=== PATIENT | male | born 1935 | race Caucasian/White ===

== ENCOUNTER → 2017-08-29 09:00 | Outpatient (CLI) | payer MEDICARE, OTHER, SELFPAY | PROVIDERS: Family Provider Family Medicine Geriatric Medicine; PCP Family Medicine Geriatric Medicine; Visit Provider Family Medicine Geriatric Medicine | DX: I25.10 Atherosclerotic heart disease of native coronary artery without angina pectoris (principal) | CPT/HCPCS: 93016; 93017; 93018 ==

== ENCOUNTER → 2017-09-12 11:15 | Outpatient (CLI) | payer MEDICARE, OTHER, SELFPAY ==
[2017-09-12 12:04] LABS: Blood Urea Nitrogen 12 mg/dL (9-20); Estimated Glomerular Filt Rate > 60.0 mL/min (>60)
--- NOTE | 2017-09-12 12:19 | DI.CT.S_ITS ---
PROCEDURE: CT ABDOMEN WO/W CON INDICATIONS: Vomiting. Prostate and bladder cancer, pancreatic mass TECHNIQUE: Noncontrast 3 mm thick sections acquired through the pancreas. After the administration of intravenous contrast, 3 mm thick pancreatic-phase images acquired from the diaphragm to the iliac crests. 3 mm thick coronal and sagittal reformats were performed. For radiation dose reduction, the following was used: automated exposure control, adjustment of mA and/or kV according to patient size. COMPARISON: [facility], CT, CT ABD PELVIS W&WO CON IVP, 10/29/2016, 16:58. FINDINGS: Image quality: Excellent. Lung bases: Lung bases show peripherally accentuated groundglass opacities, likely atelectasis or chronic interstitial lung disease. Heart size is normal. Pancreas: The lobulated cystic mass in the head of pancreas appears unchanged, measuring 1.8 cm AP by 3.9 cm in length on exam of 10/29/2016 and 1.9 cm AP by 3.6 cm in length on current study, with attenuation of 5 postcontrast. No dilatation of the pancreatic duct distal to the mass. Slight dilatation of the intrahepatic bile ducts is unchanged. Other solid organs: Liver is normal in size and enhancement. Gallbladder shows no calcified stones. Spleen is normal in size and enhancement. No adrenal nodules. Kidneys are normal in size and enhancement, without hydronephrosis. Peritoneum and bowel: Unenhanced bowel loops demonstrate normal wall thickness and caliber. No free fluid or air. Nodes and vessels: No retroperitoneal or mesenteric adenopathy by size criteria. Aorta and inferior vena cava are normal in size. Bones: No suspicious bony lesions. No vertebral body compression fractures. Miscellaneous: No ventral hernias. IMPRESSION: 1. Cystic mass in the head of pancreas is unchanged in size or appearance, likely benign but continued surveillance is recommended. 2. No evidence of soft tissue or yonny metastases. Dictated by: Go Reed M.D. on 09/12/2017 at 15:42 Approved by: Go Reed M.D. on 09/12/2017 at 16:03
== END ==
PROVIDERS: Family Provider Family Medicine Geriatric Medicine; PCP Family Medicine Geriatric Medicine; Visit Provider Surgery
DX: C67.9 Malignant neoplasm of bladder, unspecified (principal); C61 Malignant neoplasm of prostate; K86.9 Disease of pancreas, unspecified; R11.10 Vomiting, unspecified
CPT/HCPCS: 36415; 74170; 82565; 84520; Q9967

== ENCOUNTER 2017-09-26 13:29 | Day surgery (SDC) | payer MEDICARE, OTHER, SELFPAY ==
--- NOTE | 2017-09-26 | PATH_ITS ---
[facility] Accession Number: [id number] . 01 Material submitted: . PART A: ANTRAL BIOPSY PART B: GI JUNCTION BIOPSY PART C: RANDOM COLON BIOPSY . 02 Diagnosis: A. Stomach, Antrum, Biopsy: Antral mucosa with no diagnostic abnormality. No evidence of Helicobacter on H/E stain. Negative for intestinal metaplasia. Negative for dysplasia and malignancy. . B. Gastroesophageal Junction, Biopsy: Squamocolumnar junctional mucosa with no diagnostic abnormality. Negative for intestinal metaplasia. Negative for dysplasia and malignancy. . C. Random Colon, Biopsies: Colonic mucosa with no diagnostic abnormality. Negative for active, chronic and microscopic colitis. Negative for dysplasia and malignancy. [facility]/09/30/2017 . 02 Electronically signed: . Karina Mcfarland MD, Pathologist NPI- [id number] . 01 Gross description: . Part A: ANTRAL BIOPSY: Received in formalin are 3 fragment(s) of juarez, soft tissue measuring 0.4 x 0.4 x 0.2 cm to 0.3 x 0.2 x 0.2 cm submitted entirely in 1 cassette(s) Part B: GI JUNCTION BIOPSY: Received in formalin are multiple fragment(s) of juarez, soft tissue measuring 1.0 x 0.5 x 0.2 cm in aggregate submitted entirely in 1 cassette(s) Part C: RANDOM COLON BIOPSY: Received in formalin are multiple fragment(s) of juarez, soft tissue measuring 0.8 x 0.5 x 0.1 cm in aggregate submitted entirely in 1 cassette(s) /CKI /CKI . 02 Pathologist provided ICD-10: R10.9 . 02 CPT . 666078, 120019, 954594 Performed at: [address], [place], [place] [id number] MD Jeremy Mckinley MD Phone: [phone] Performed at: 02 [facility] [place] [address] [place] [id number] MD Tk Lott MD Phone: [phone]
[2017-09-26] MEDS: SODIUM CHLORIDE 0.9% 1,000 ML 200 ML IV (14:00)
[2017-09-26 14:01] VITALS: BP 120/73; PULSE 77; RESP 18; TEMP 37; O2SAT 99; BMI 24.7
--- NOTE | 2017-09-26 14:14 | PM.PREOP ---
Pre-operative Note Interval Note Pre-op Check: Yes History & Physical Reviewed by Physician and Yes Exam Performed Changes: No H&P completed within 30 days and has changed as indicated here:: Patient seen and examined today. History physical examination from August 29, 2017 has not changed. That documented on the chart. Proceed with EGD and colonoscopy today as planned. Recent treadmill study was unremarkable. CT scan demonstrates stable pancreatic lesion but referral has been initiated for potential endoscopic ultrasound. Patient aware. ASA Class (for procedural sedation): II
[2017-09-26] MEDS: TETRACAINE/BENZOCAINE/BUTAMBEN (CETACAINE) BOTTLE 1 SPRAY TOP (14:53)
[2017-09-26] MEDS: LIDOCAINE 4% SOLN 50 ML 20 ML TOP (14:58)
[2017-09-26] MEDS: MIDAZOLAM 5 MG/5 ML VIAL IV (15:05)
[2017-09-26] MEDS: fentaNYL 250 MCG/5 ML INJ IV (15:06)
--- NOTE | 2017-09-26 15:11 | PM.OP.ENDO ---
Operative Date/Time/Diagnoses Date of procedure: 09/26/17 Time of procedure: 15:11 Pre-op diagnosis: Nausea, vomiting, abdominal pain Post-op diagnosis: other (1. Duodenitis 2. Peptic ulcer disease 3. Gastritis 4. Erosive esophagitis at GE junction 5. Pandiverticulosis) Procedure & Clinicians Study performed: 1. Sedation per surgeon 2. Esophagogastroduodenoscopy with cold forceps biopsies 3. Colonoscopy with cold forceps biopsies Same procedure as scheduled: Yes Indications: 82-year-old male who recently presented with intractable nausea, vomiting, and abdominal pain. He had also experienced some mild change in the caliber and character of his stool. He was recommended to undergo EGD and colonoscopy. Surgeon: Francois Womack Procedure Notes SCOAP/Timeout: Yes Procedure in detail: After obtaining informed consent the patient was brought to the endoscopy suite and attached all appropriate cardiopulmonary monitors. Nasal cannula oxygen was applied. Topical anesthetic was applied to the oropharynx. Patient was placed in left lateral decubitus position. A bite block was inserted. SCOAP time out was performed per standard protocol. Intravenous sedation was achieved per the surgeon using fentanyl and Versed. Gastroscope was placed over the tongue to the oropharynx where the upper esophageal sphincter was identified. Esophagus was easily intubated and the scope was advanced under direct visualization of the esophageal lumen into the stomach. Stomach insufflated easily with air. Pylorus was mildly inflamed but otherwise grossly normal and widely patent. The pylorus was intubated and the scope was advanced to the distal 2nd portion of the duodenum. Scope was slowly withdrawn and the bowel was meticulously and circumferentially examined. Findings are as above. Scope was withdrawn into the stomach where antral biopsies were performed. Hemostasis was verified. Retroflexed view demonstrated mildly inflamed incisura but no evidence of gastric ulcers or neoplasms. No significant hiatal hernia. Diffuse mild gastritis but otherwise normal stomach. Stomach was suctioned of as much fluid and air as possible and the scope was withdrawn to the gastroesophageal junction which was located 38 cm from the incisors. There was significant erosive gastritis circumferentially. Multiple biopsies were taken. Hemostasis was again verified. Esophagus was meticulously and circumferentially examined as the scope was slowly withdrawn. No other abnormalities, strictures, or neoplasms were identified in the esophagus. Scope was withdrawn through the mouth and this portion of the procedure was terminated. Bite block was removed. Table was turned 180? for colonoscopy. Digital rectal examination revealed no masses. Prostate was without obvious nodules. Colonoscope was inserted into the rectum and the bowel was insufflated with carbon dioxide. Under direct visualization of the colonic lumen the scope was advanced to the cecum where the appendiceal orifice and ileocecal valve were identified. Terminal ileum was intubated and noted to be grossly normal. Scope was slowly withdrawn and the bowel was meticulously and circumferentially examined. Bowel preparation was adequate. He had significant pandiverticulosis but without evidence of inflammation, hemorrhage, or stricture. No polyps or other neoplasms were identified. No gross colitis. However, random biopsies were taken for the possibility of microscopic colitis. Retroflex view of the distal rectum and anus revealed no abnormalities. Hemorrhoids were normal. Scope was withdrawn and the procedure was terminated. Patient taken recovery in stable condition. Scope withdrawal time: 9:10 min Sedation minutes: 38 Findings: Mccall's esophagus (Pending biopsy results), diverticulosis, duodenal ulcer (Multiple linear and punctate ulcerations throughout the entire 1st and 2nd portion duodenum with no exposed vessels or clot. Old blood present.), gastritis and other findings (Duodenitis) Specimen(s): other (1. Antral biopsies 2. Gastroesophageal junction biopsies. 3. Random colon biopsies) Complications: none Recommendations: High fiber diet, Prescription for (Protonix), No ASA/NSAIDS, Start medication(s) (Protonix) and Other recommendation (Await biopsy results) Plan for aftercare: 1. Discharge to home 2. Follow up in surgery Clinic in 2 weeks Follow up: weeks (Dr. Womack in 2 weeks) Disposition: same day surgery
[2017-09-26 15:20] VITALS: BP 122/73; PULSE 75; RESP 20; TEMP 36.9; O2SAT 99
== END 2017-09-26 15:40 | disposition home or self-care (01) ==
PROVIDERS: PCP Family Medicine Geriatric Medicine; Visit Provider Surgery
PROC: 0DJ08ZZ Inspection of Upper Intestinal Tract, Via Natural or Artificial Opening Endoscopic (ICD-10-PCS; CPT 43235; principal; 2017-09-26 15:00)
PROC: 0DJD8ZZ Inspection of Lower Intestinal Tract, Via Natural or Artificial Opening Endoscopic (ICD-10-PCS; CPT 45378; 2017-09-26 15:00)
DX: K29.80 Duodenitis without bleeding (principal); K27.9 Peptic ulcer, site unspecified, unspecified as acute or chronic, without hemorrhage or perforation; K29.70 Gastritis, unspecified, without bleeding; K22.10 Ulcer of esophagus without bleeding; K57.30 Diverticulosis of large intestine without perforation or abscess without bleeding; C67.9 Malignant neoplasm of bladder, unspecified; R11.2 Nausea with vomiting, unspecified; R19.7 Diarrhea, unspecified; J44.9 Chronic obstructive pulmonary disease, unspecified
CPT/HCPCS: 45380; 43239; 88305; 99152; 99153; J2250; J3010

== ENCOUNTER 2019-05-20 17:45 | Observation (INO) | payer MEDICARE, OTHER, SELFPAY ==
[2019-05-20] VITALS (7 sets, daily range): BP systolic 114–133; BP diastolic 57–72; PULSE 60–65; RESP 16–22; TEMP 36.2–36.8; O2SAT 96–99; BMI 21.6
--- NOTE | 2019-05-20 18:03 | DI.RAD.S_ITS ---
PROCEDURE: XR CHEST 1V INDICATIONS: chest pain TECHNIQUE: One view of the chest was acquired. COMPARISON: [facility], SD, SD PET CT FUSION SKULL 2 THIGH, 05/20/2019, 13:33. [facility], , CHEST 2 VIEW, 05/30/2010, 12:29. FINDINGS: Surgical changes and devices: None. Lungs and pleura: Chronic interstitial changes are present. Free is noted below the right hemidiaphragm. Mediastinum: Mediastinal contours appear normal. Heart size is mildly enlarged. Bones and chest wall: No suspicious bony lesions. Overlying soft tissues appear unremarkable. IMPRESSION: Air below the right hemidiaphragm most consistent with pneumoperitoneum. This is consistent with findings on PET scan of 05/20/19. The findings were discussed with Dr. Juan Miguel Abel on 05/20/19 at 6:37 PM. Dictated by: Alyse Cruz M.D. on 05/20/2019 at 18:36 Approved by: Alyse Cruz M.D. on 05/20/2019 at 18:41
[2019-05-20 18:11] LABS: Add Manual Diff / Slide Review NO; Basophils Absolute Auto 100 /uL (0-100); Basophils Percent Auto 0.9 % (0-2); Eosinophils Absolute Auto 1000 /uL (0-450); Eosinophils Percent Auto 11.2 % (2-4); Hematocrit 38.8 % (41-53); Hemoglobin 12.9 g/dL (13.5-17.5); Lymphocytes Absolute Auto 1900 /uL (1100-4500); Mean Corpuscular HGB Conc 33.3 % (30-36); Mean Corpuscular Hemoglobin 31.3 PG (26-34); Monocytes Absolute Auto 700 /uL (0-900); Monocytes Percent Auto 8.1 % (3-14); Neutrophils Absolute Auto 4900 /uL (1500-7000); Neutrophils Percent Auto 57.8 % (50-75); Platelet Count 394 X10^3/uL (150-400); Red Blood Cell Count 4.13 X10^6/uL (4.5-5.9); Red Cell Distribution Width 14.5 % (11.6-14.8); White Blood Cell Count 8.5 X10^3/uL (4.5-11.0)
[2019-05-20 18:12] LABS: INR 1.3 (0.9-1.3); Prothrombin Time 14.9 SECONDS (10.1-12.7)
[2019-05-20 18:15] LABS: PTT Partial Thromboplastin Tim 29 SECONDS (26.4-36.2)
[2019-05-20 18:18] LABS: Alanine Aminotransferase 15 IU/L (<50); Albumin 2.9 g/dL (3.5-5.0); Albumin Globulin Ratio 1.2 (1.0-2.8); Alkaline Phosphatase 58 U/L (38-126); Aspartate Aminotransferase 29 IU/L (17-59); BUN Creatinine Ratio 16.2 (6-22); Bilirubin Total 0.4 mg/dL (0.2-1.3); Blood Urea Nitrogen 17 mg/dL (9-20); Calcium 8.2 mg/dL (8.4-10.2); Carbon Dioxide 29 mmol/L (22-32); Chloride 99 mmol/L (98-107); Creatine Kinase 73 U/L (55-170); Estimated Glomerular Filt Rate > 60.0 mL/min (>60); Globulin 2.5 g/dL (1.7-4.1); Glucose 85 mg/dL (80-110); HEMOLYSIS 17 (0-50); Lipase 68 U/L (23-300); Potassium 4.2 mmol/L (3.4-5.1); Sodium 132 mmol/L (137-145); Total Protein 5.4 g/dL (6.3-8.2)
[2019-05-20 18:30] LABS: NT-proBNP (BNP-Adult 18+) 166 pg/mL (<450); Troponin I < 0.012 ng/mL (0.01-0.034)
--- NOTE | 2019-05-20 18:35 | ED.RECABL ---
HPI - Recheck/Abnormal Lab/Rx General Chief Complaint: Recheck/Abnormal Lab/Rx Stated Complaint: had PET scan, told to go to ER right away Time Seen by Provider: 05/20/19 17:58 Source: patient Mode of arrival: Ambulatory Limitations: no limitations History of Present Illness HPI narrative: 83M with history of bladder CA, COPD presents with his and the chief complaint of abnormal findings on PET scan from earlier today. He reports a recent unexplained 40lb weight loss and given his history of bladder CA his doctor ordered a PET scan which was performed today. The findings noted free air under the diaphragm and also within the colon of the bowel. Patient reports no pain, fever, chills, N/V/D. He's had no cough or SOB. He denies runny nose, sore throat, or nasal congestion. He has had some firm stools and reports some forceful pushing. He denies any sudden onset of pain or any injuries. His diet is largely only Ensure. MD complaint: other Initial visit for: other Symptoms since prior visit: no new symptoms Related Data Home Medications Medication Instructions Recorded Confirmed aspirin 81 mg chewable tablet 81 mg PO DAILY 08/29/17 10/31/17 atorvastatin 20 mg tablet 20 mg PO DAILY 08/29/17 10/31/17 milk thistle PO 08/29/17 10/31/17 multivit with min-folic tab PO tab 08/29/17 10/31/17 acid-lutein 400 mcg-250 mcg chewable tablet omega-3 fatty acids 1,000 mg 1,000 mg PO DAILY 08/29/17 10/31/17 capsule ondansetron 4 mg disintegrating 4 mg PO BID-TID PRN 08/29/17 10/31/17 tablet simethicone 125 mg capsule 125 mg PO QID PRN 08/29/17 10/31/17 timolol 0.25 % eye drops EYE-BOTH BID ml 08/29/17 10/31/17 Previous Rx's Medication Instructions Recorded omeprazole 40 mg PO DAILY #90 cap 09/26/17 Allergies Allergy/AdvReac Type Severity Reaction Status Date / Time No Known Drug Allergies Allergy Unverified 08/29/17 11:22 Review of Systems Constitutional Constitutional: Denies chills, Denies fatigue, Denies fever(s), Denies frequent falls, Denies lethargy and Denies weakness Eyes Eyes: Denies change in vision, Denies eye discharge, Denies irritation and Denies loss of vision ENT Ears, Nose, Mouth, and Throat: Denies change in voice, Denies dizziness, Denies neck pain, Denies sore throat and Denies throat swelling Cardiovascular Cardiovascular: Denies chest pain, Denies irregular heart rhythm, Denies lightheadedness, Denies palpitations, Denies dyspnea, Denies dyspnea on exertion and Denies orthopnea Respiratory Respiratory: Denies cough, Denies dyspnea, Denies dyspnea on exertion and Denies wheezing Gastrointestinal Gastrointestinal: Denies abdominal pain, Denies change in bowel habits, Denies diarrhea, Denies nausea and Denies vomiting Genitourinary Genitourinary: Denies hematuria, Denies flank pain, Denies urinary incontinence and Denies urinary urgency Musculoskeletal Musculoskeletal: Denies back pain, Denies muscle weakness, Denies neck pain, Denies numbness and Denies tingling Integumentary/Breasts Skin/Breast: Denies pruritus, Denies erythema, Denies rash and Denies wounds Neurologic Neurologic: Denies behavioral changes, Denies confusion, Denies dizziness, Denies frequent falls, Denies loss of vision, Denies numbness, Denies tingling and Denies weakness Psychiatric Psychiatric: Denies anxiety, Denies behavioral changes, Denies confusion, Denies depression, Denies homicidal ideation and Denies suicidal ideation Endocrine Endocrine: Denies fatigue, Denies flushing and Denies palpitations Hematologic/Lymphatic Hematologic/Lymphatic: Denies easy bruising Allergic/Immunologic Allergic/Immunologic: Denies urticaria, Denies throat swelling and Denies wheezing Patient History Medical History 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) Bladder cancer (Acute) Bladder tumor (Resolved) COPD (chronic obstructive pulmonary disease) (Acute) Diverticulosis large intestine w/o perforation or abscess w/o bleeding (Acute) Gastroesophageal reflux disease (Acute) Glaucoma (Acute) History of brachytherapy (Acute) History of diverticulitis (Acute) Hyperlipidemia (Acute) Personal history of colonic polyps (Acute) Prostate cancer (Acute) Sensorineural hearing loss (Acute) Surgical History H/O hernia repair (Resolved) H/O transurethral destruction of bladder lesion (Acute) History of colonoscopy (Acute) History of hernia repair (Acute) Hx of cataract surgery (Acute) Family History Sister Hypertension Mother Heart disease Father Heart disease Social History marital status: household members: spouse Smoking Status: Former smoker alcohol intake: current Smoking Status: Former smoker tobacco type: cigarettes alcohol intake frequency: 0-2 drinks per day Substance Use Type: does not use Exam Narrative Exam Narrative: GENERAL: [83] year old patient appears stated age. Well-nourished, well-developed patient, in mild distress. HEAD: Atraumatic. Normocephalic. EYES: Pupils equal round and reactive. Extraocular motions intact. No scleral icterus. No injection or drainage. ENT: Nose without bleeding, purulent drainage. Throat without erythema, tonsillar hypertrophy or exudate. Airway patent. NECK: Trachea midline. Non tender CARDIOVASCULAR: Regular rate and rhythm without murmurs, gallops, or rubs. RESPIRATORY: Clear to auscultation. Breath sounds equal bilaterally. No wheezes, rales, or rhonchi. GASTROINTESTINAL: Abdomen soft, non-tender, nondistended. EXTREMITIES: No edema or joint tenderness. BACK: Nontender without deformity or crepitance. No flank tenderness. NEURO: AOx3. SKIN: No rash or erythema of visible areas Initial Vital Signs Initial Vital Signs: Vital Signs Temperature 97.1 F L 05/20/19 17:45 Pulse Rate 62 05/20/19 17:45 Respiratory Rate 20 05/20/19 17:45 Blood Pressure 133/65 05/20/19 17:45 Pulse Oximetry 96 05/20/19 17:45 Course Orders Ordered: ED Orders 05/20/19 18:00 BNP [NT-proBNP (BNP-Adult 18+)] Stat Complete Blood Count AUTO DIFF Stat Comprehensive Metabolic Panel Stat Lipase Stat Partial Thromboplastin Time Stat Prothrombin Time INR Stat Troponin & CK Cardiac Panel Stat 05/20/19 18:03 XR chest 1V Stat EKG-12 Lead Stat 05/20/19 18:30 Lactate (Lactic Acid) Stat 05/20/19 19:11 CT chest abd pel w con Stat Acetaminophen (Tylenol) 650 mg PO Q6HR PRN PRN Reason: Fever/Mild Pain (1-3) Sodium Chloride (Normal Saline 0.9%) 1,000 mls @ 100 mls/hr IV BOLUS ONE Stop: 05/21/19 04:51 Last Infusion: 05/20/19 19:30 Dose: 0 mls/hr Documented by: Admin: 05/20/19 18:55 Dose: 1,000 mls/hr Documented by: MAIKEL Sodium Chloride (Normal Saline 0.9%) 1,000 mls @ 75 mls/hr IV CONT TROY Naloxone HCl (Narcan) 0.2 mg IV Q2MIN PRN PRN Reason: Opiate Reversal Ondansetron HCl (Zofran) 4 mg IV Q8HR PRN PRN Reason: Nausea And Vomiting Consultations Consultation #1: early discussion with Gen Surgery (Haroon) and Radiology (Anthony) to discuss appropriate imaging and we all agree that CT Chest/Abd/Pelvis with IV contrast is most appropriate Consultation #2: discussion with GI at [facility] to keep in the loop. Dr. Garza has no significantly new recommendations and is in agreement with OBS at our facility to repeat labs and serial exams. Dr. Patiño agrees that hospitalization is most appropriate, but given lack of surgical findings asks that we admit to hospitalist Hospitalist (Contreras) happy to accept. Vital Signs Vital signs: Vital Signs - 8 hr 05/20/19 17:45 05/20/19 18:00 05/20/19 18:30 Temperature 97.1 F L Pulse Rate 62 60 62 Respiratory Rate 20 22 20 Blood Pressure 133/65 Blood Pressure [Right Arm] 118/57 L 114/58 L Pulse Oximetry 96 96 96 05/20/19 19:13 05/20/19 20:36 Temperature Pulse Rate 60 62 Respiratory Rate 18 18 Blood Pressure Blood Pressure [Right Arm] 114/72 Pulse Oximetry 97 99 MDM - Recheck/Abnormal Lab/Rx Lab Data Result diagrams: 05/20/19 18:00 05/20/19 18:00 Labs: Lab Results 05/20/19 05/20/19 05/20/19 Range/Units 18:00 18:00 18:00 WBC 8.5 (4.5-11.0) X10^3/uL RBC 4.13 L (4.5-5.9) X10^6/uL Hgb 12.9 L (13.5-17.5) g/dL Hct 38.8 L (41-53) % MCV 94.0 (80-100) fL MCH 31.3 (26-34) PG MCHC 33.3 (30-36) % RDW 14.5 (11.6-14.8) % Plt Count 394 (150-400) X10^3/uL Neut % (Auto) 57.8 (50-75) % Lymph % (Auto) 22.0 L (25-40) % [place] % (Auto) 8.1 (3-14) % Eos % (Auto) 11.2 H (2-4) % Baso % (Auto) 0.9 (0-2) % Neut # (Auto) 4900 (4372-8621) /uL Lymph # (Auto) 1900 (6145-4254) /uL [place] # (Auto) 700 (0-900) /uL Eos # (Auto) 1000 H (0-450) /uL Baso # (Auto) 100 (0-100) /uL PT 14.9 H (10.1-12.7) SECONDS INR 1.3 (0.9-1.3) APTT 29 (26.4-36.2) SECONDS Sodium 132 L (137-145) mmol/L Potassium 4.2 (3.4-5.1) mmol/L Chloride 99 (98-107) mmol/L Carbon Dioxide 29 (22-32) mmol/L BUN 17 (9-20) mg/dL Creatinine 1.05 (0.66-1.25) mg/dL Estimated GFR > 60.0 (>60) mL/min BUN/Creatinine Ratio 16.2 (6-22) Glucose 85 (80-110) mg/dL Lactate (0.7-2.1) mmol/L Calcium 8.2 L (8.4-10.2) mg/dL Total Bilirubin 0.4 (0.2-1.3) mg/dL AST 29 (17-59) IU/L ALT 15 (<50) IU/L Alkaline Phosphatase 58 (38-126) U/L Total Creatine Kinase 73 (55-170) U/L CK-MB (CK-2) TNP CK-MB (CK-2) Rel Index TNP Troponin I < 0.012 (0.01-0.034) ng/mL NT-Pro-B Natriuret Pep 166 (<450) pg/mL Total Protein 5.4 L (6.3-8.2) g/dL Albumin 2.9 L (3.5-5.0) g/dL Globulin 2.5 (1.7-4.1) g/dL Albumin/Globulin Ratio 1.2 (1.0-2.8) Lipase 68 (23-300) U/L 05/20/19 Range/Units 18:30 WBC (4.5-11.0) X10^3/uL RBC (4.5-5.9) X10^6/uL Hgb (13.5-17.5) g/dL Hct (41-53) % MCV (80-100) fL MCH (26-34) PG MCHC (30-36) % RDW (11.6-14.8) % Plt Count (150-400) X10^3/uL Neut % (Auto) (50-75) % Lymph % (Auto) (25-40) % [place] % (Auto) (3-14) % Eos % (Auto) (2-4) % Baso % (Auto) (0-2) % Neut # (Auto) (6879-8136) /uL Lymph # (Auto) (0261-0335) /uL [place] # (Auto) (0-900) /uL Eos # (Auto) (0-450) /uL Baso # (Auto) (0-100) /uL PT (10.1-12.7) SECONDS INR (0.9-1.3) APTT (26.4-36.2) SECONDS Sodium (137-145) mmol/L Potassium (3.4-5.1) mmol/L Chloride (98-107) mmol/L Carbon Dioxide (22-32) mmol/L BUN (9-20) mg/dL Creatinine (0.66-1.25) mg/dL Estimated GFR (>60) mL/min BUN/Creatinine Ratio (6-22) Glucose (80-110) mg/dL Lactate 1.2 (0.7-2.1) mmol/L Calcium (8.4-10.2) mg/dL Total Bilirubin (0.2-1.3) mg/dL AST (17-59) IU/L ALT (<50) IU/L Alkaline Phosphatase (38-126) U/L Total Creatine Kinase (55-170) U/L CK-MB (CK-2) CK-MB (CK-2) Rel Index Troponin I (0.01-0.034) ng/mL NT-Pro-B Natriuret Pep (<450) pg/mL Total Protein (6.3-8.2) g/dL Albumin (3.5-5.0) g/dL Globulin (1.7-4.1) g/dL Albumin/Globulin Ratio (1.0-2.8) Lipase (23-300) U/L Urine Dip Bedside Urine Glucose Negative Bedside Urine Bilirubin - Negative Bedside Urine Ketone +/- 5 Urine Specific [place] 1.005 Bedside Urine Occult Blood - Negative Bedside Urine pH 7.5 Bedside Urine Protein - Negative Bedside Urine Urobilinogen - Negative Bedside Urine Nitrite - Negative Bedside Urine Leukocytes - Negative Esterase Imaging Data CT scan - chest: Radiologist's Impression: Signed Patient: Edgar Yeh JMR#: [id number] : 7Acct:[id number] Age/Sex: 83 / MDate of Service: 05/20/19 Loc: ED Accession Number: [id number] Procedure: CT chest abd pel w con Ordering Provider: Juan Miguel Abel D.O. PROCEDURE: CT CHEST ABD PEL W CON INDICATIONS: free air on CXR, free air noted on PET TECHNIQUE: After the administration of oral and intravenous contrast, 5 mm thick sections acquired from the lung apices to the symphysis. 5 mm coronal and sagittal reformats were performed, with additional 7 mm coronal MIP reformats through the lungs. For radiation dose reduction, the following was used: automated exposure control, adjustment of mA and/or kV according to patient size. COMPARISON: Outside Film, CT, CT ABDOMEN WITHOUT CONTRAST, 06/19/2018, 8:58. [place], [place], [place] PET CT FUSION SKULL 2 THIGH, 05/20/2019, 13:33. FINDINGS: Image quality: Excellent. CHEST: Lungs and pleura: No acute airspace opacities. No pleural effusions or pneumothorax. Central and peripheral airways appear patent and normal in caliber. Mediastinum: Heart size is normal. No pericardial effusion. No mediastinal or hilar adenopathy by size criteria. Thoracic aorta and central pulmonary arteries are normal in size. Esophagus is distended with fluid in the distal portion. No hiatal hernia. Chest wall: No axillary or supraclavicular adenopathy by size criteria. Thyroid gland is unremarkable. ABDOMEN: Solid organs: Liver is normal in size and enhancement. Gallbladder is unremarkable. Biliary system is non dilated. Pancreas enhances normally. Spleen is normal in size and enhancement. No adrenal nodules. Kidneys demonstrate normal size and enhancement, without hydronephrosis. Peritoneum and bowel: There is mild to moderate free air within the nondependent abdomen and below the hemidiaphragms particularly on the right. Air is present within the bowel wall along the anterior and mid abdomen. This appears to be predominantly within the small bowel. However, extensive diverticula are present within the colon and small areas of air within the wall versus diverticula cannot be excluded particularly were bowel loops are overlapping. The bowel appears to demonstrate normal enhancement. Minimal dependent pelvic fluid. Nodes and vessels: Multiple enlarged/borderline enlarged mesenteric lymph nodes are present most numerous within the region of affected bowel. Aorta and inferior vena cava are normal in size. Miscellaneous: No ventral hernias. PELVIS: Genitourinary: Bladder wall thickness is normal. Miscellaneous: No inguinal hernias or adenopathy. Bones: No suspicious bony lesions. No vertebral body compression fractures. IMPRESSION: 1. Free air within the abdomen and pelvis consistent with pneumoperitoneum. In addition, air within the bowel wall predominantly be small bowel consistent with pneumatosis is identified. Overall appearance is unchanged compared to PET scan of 05/20/19. It is noted that the bowel continues to demonstrate normal enhancement. Overall appearance is suggestive of infection/inflammation particularly given surrounding reactive lymph nodes. 2. Significant colonic diverticulosis. 3. Minimal dependent pelvic fluid. Dictated by: Alyse Cruz M.D. on 05/20/2019 at 19:40 Approved by: Alyse Cruz M.D. on 05/20/2019 at 19:49 Discharge Plan Departure Patient Disposition: Admitted as Observation Clinical Impression: Pneumatosis intestinalis, Pneumoperitoneum Discharge Date/Time: 05/20/19 21:43 Admit Date/Time: 05/20/19 21:05 Admit Provider: Ivy Chairez
[2019-05-20] MEDS: SODIUM CHLORIDE 0.9% 1,000 ML 1000 ML IV (18:55)
[2019-05-20 19:03] LABS: Lactate (Lactic Acid) 1.2 mmol/L (0.7-2.1)
--- NOTE | 2019-05-20 19:11 | DI.CT.S_ITS ---
PROCEDURE: CT CHEST ABD PEL W CON INDICATIONS: free air on CXR, free air noted on PET TECHNIQUE: After the administration of oral and intravenous contrast, 5 mm thick sections acquired from the lung apices to the symphysis. 5 mm coronal and sagittal reformats were performed, with additional 7 mm coronal MIP reformats through the lungs. For radiation dose reduction, the following was used: automated exposure control, adjustment of mA and/or kV according to patient size. COMPARISON: Outside Film, CT, CT ABDOMEN WITHOUT CONTRAST, 06/19/2018, 8:58. [place], [place], [place] PET CT FUSION SKULL 2 THIGH, 05/20/2019, 13:33. FINDINGS: Image quality: Excellent. CHEST: Lungs and pleura: No acute airspace opacities. No pleural effusions or pneumothorax. Central and peripheral airways appear patent and normal in caliber. Mediastinum: Heart size is normal. No pericardial effusion. No mediastinal or hilar adenopathy by size criteria. Thoracic aorta and central pulmonary arteries are normal in size. Esophagus is distended with fluid in the distal portion. No hiatal hernia. Chest wall: No axillary or supraclavicular adenopathy by size criteria. Thyroid gland is unremarkable. ABDOMEN: Solid organs: Liver is normal in size and enhancement. Gallbladder is unremarkable. Biliary system is non dilated. Pancreas enhances normally. Spleen is normal in size and enhancement. No adrenal nodules. Kidneys demonstrate normal size and enhancement, without hydronephrosis. Peritoneum and bowel: There is mild to moderate free air within the nondependent abdomen and below the hemidiaphragms particularly on the right. Air is present within the bowel wall along the anterior and mid abdomen. This appears to be predominantly within the small bowel. However, extensive diverticula are present within the colon and small areas of air within the wall versus diverticula cannot be excluded particularly were bowel loops are overlapping. The bowel appears to demonstrate normal enhancement. Minimal dependent pelvic fluid. Nodes and vessels: Multiple enlarged/borderline enlarged mesenteric lymph nodes are present most numerous within the region of affected bowel. Aorta and inferior vena cava are normal in size. Miscellaneous: No ventral hernias. PELVIS: Genitourinary: Bladder wall thickness is normal. Miscellaneous: No inguinal hernias or adenopathy. Bones: No suspicious bony lesions. No vertebral body compression fractures. IMPRESSION: 1. Free air within the abdomen and pelvis consistent with pneumoperitoneum. In addition, air within the bowel wall predominantly be small bowel consistent with pneumatosis is identified. Overall appearance is unchanged compared to PET scan of 05/20/19. It is noted that the bowel continues to demonstrate normal enhancement. Overall appearance is suggestive of infection/inflammation particularly given surrounding reactive lymph nodes. 2. Significant colonic diverticulosis. 3. Minimal dependent pelvic fluid. Dictated by: Alyse Cruz M.D. on 05/20/2019 at 19:40 Approved by: Alyse Cruz M.D. on 05/20/2019 at 19:49
--- NOTE | 2019-05-20 22:22 | PC.ADMIT ---
[email or web address] Admission Note: The patient,Edgar Yeh,83 y/o, was given written information regarding hospital policies, unit procedures and contact persons. Patient's smoking status: Former smoker. Vital Signs - 8 hr 05/20/19 17:45 05/20/19 18:00 05/20/19 18:30 Temperature 97.1 F L Pulse Rate 62 60 62 Respiratory Rate 20 22 20 Blood Pressure 133/65 Blood Pressure [Right Arm] 118/57 L 114/58 L Pulse Oximetry 96 96 96 05/20/19 19:13 05/20/19 20:36 Temperature Pulse Rate 60 62 Respiratory Rate 18 18 Blood Pressure Blood Pressure [Right Arm] 114/72 Pulse Oximetry 97 99 Patient up from ED via wheelchair. Patient was able to ambulate to the bed, gait steady. Patient denies any pain or shortness of breath. Patient A&O, calm and cooperative.
[2019-05-20] MEDS: SODIUM CHLORIDE 0.9% 1,000 ML 75 ML IV (22:37)
--- NOTE | 2019-05-20 23:29 | P.HP_ITS ---
History of Present Illness History of Present Illness Date Patient Seen: 05/20/19 Time Patient Seen: 23:33 Chief complaint: Abnormal PET scan, told to go to ER right away Narrative: Edgar Yeh is an 83-year-old resident on Saturday who was having a PET scan done today at [facility]. [place] when he was contacted by the radiology department to return to the hospital for further evaluation due to abnormal finding seen on the PET scan. The PET scan indicated that the patient had a pneumoperitoneum with gas seen above the diaphragm as well and a finding of small intestine pneumatosis intestinalis and small volume of pneumoperitoneum. He was directed to report back to the emergency department indicates that he may need to have surgical intervention. The patient has a history of prostate cancer diagnosed and treated with brachytherapy 18 years ago and bladder cancer diagnosed in 2018 and currently undergoing BCG treatment. The he also states he has dumping syndrome. Patient was ordered for a PET scan due to a weight loss extending back 2 years of approximately 45 lbs. He states that he has been quite fatigued and has had changes in his stool from a normal of creamy white stool the same color as Ensure vanilla formula? of which he is mostly been subsisting on. He states he is on a 2200 calorie per day diet. He states that he has developed stool incontinence and until approximately 1 week ago it changed to a dark brown color. At that point he stopped taking his daily aspirin with due to a concern of bleeding. He believes that he had a stool guaiac performed at his PCPs [facility]. He has had intermittent nausea and vomiting, no appetite and states has gas both in the form of burping as well as flatulence. He states that the flatulence is loud but not odorous. During his most recent visit to Dr. Gaviria, he believes they did a stool guaiac and stated that at that time his stool was as hard as granite. He states that with his progressive weight loss, he is becoming more short of breath. He denies any abdominal pain but does endorse having muscle weakness. He used to walk 10,000 steps a day and is no longer able to do that. He stated that his vomiting started 3 weeks ago and then stopped about a week ago. Patient sees Dr. Gaviria in [place] who manages his general medical issues, he is seen Dr. Garza, GI specialist at [facility] who recently referred him to [facility]. In 2018, he had an upper endoscopy done by js Garza and apparently in 2018 he had a large duodenal ulcer. He just recently had a telemedicine appointment with Luz Bullock NP and was scheduled for an appointment with Dr. Knight sometime next week, but was postponed. Patient History Medical History Atherosclerotic heart disease of [place] coronary artery without angina pectoris (Acute) Bladder cancer (Acute) Bladder tumor (Resolved) COPD (chronic obstructive pulmonary disease) (Acute) Diverticulosis large intestine w/o perforation or abscess w/o bleeding (Acute) Gastroesophageal reflux disease (Acute) Glaucoma (Acute) History of brachytherapy (Acute) History of diverticulitis (Acute) Hyperlipidemia (Acute) Personal history of colonic polyps (Acute) Prostate cancer (Acute) Sensorineural hearing loss (Acute) Surgical History H/O hernia repair (Resolved) H/O transurethral destruction of bladder lesion (Acute) History of colonoscopy (Acute) History of hernia repair (Acute) Hx of cataract surgery (Acute) Family & Social History Family History (Updated 05/21/19 @ 00:01 by MELINDA Smalls) Sister Hypertension Mother Heart disease Father Heart disease Aortic aneurysm and dissection Social History: household members spouse Prior Living Arrangements House Safety & Behavioral: Feels Safe in Current Yes Environment Been Physically Hurt or No Threatened By a Person Suicidal Ideation Description None Suicide Plan Description No Plan Tobacco & Substance use: Smoking Status Former smoker, smoked for 28 years alcohol intake current alcohol intake frequency 0-2 drinks per day Substance Use Type does not use Meds Home Medications and Allergies Home Medications Medication Instructions Recorded Confirmed Type milk thistle 250 mg PO DAILY 08/29/17 05/20/19 History multivit with min-folic tab PO tab 08/29/17 10/31/17 History acid-lutein 400 mcg-250 mcg chewable tablet omega-3 fatty acids 1,000 mg 1,000 mg PO DAILY 08/29/17 05/20/19 History capsule ondansetron 4 mg disintegrating 4 mg PO QID PRN 08/29/17 05/20/19 History tablet timolol 0.25 % eye drops 1 drp EYE-BOTH BID ml 08/29/17 05/20/19 History omeprazole 40 mg PO DAILY #90 cap 09/26/17 05/20/19 Rx cyanocobalamin (vitamin B-12) 2,500 mcg PO DAILY 05/20/19 05/20/19 History latanoprost [Xalatan] 1 drp OPHTHALMIC (EYE) BEDTIME 05/20/19 05/20/19 History melatonin 1 mg PO BEDTIME PRN 05/20/19 05/20/19 History simethicone [Gas-X Extra Strength] 125 mg PO BID-QID PRN 05/20/19 05/20/19 History Allergies Allergy/AdvReac Type Severity Reaction Status Date / Time No Known Drug Allergies Allergy Unverified 08/29/17 11:22 Review of Systems Review of Systems ROS: Yes All systems reviewed with the patient and are negative except as otherwise documented Exam Vital Signs (past 8 hours): - 05/20/19 17:45 05/20/19 18:00 05/20/19 18:30 Temperature 97.1 F L Pulse Rate 62 60 62 Respiratory Rate 20 22 20 Blood Pressure 133/65 Blood Pressure [Right Arm] 118/57 L 114/58 L Pulse Oximetry 96 96 96 05/20/19 19:13 05/20/19 20:36 05/20/19 22:46 Temperature 97.4 F L Pulse Rate 60 62 65 Respiratory Rate 18 18 18 Blood Pressure 115/65 Blood Pressure [Right Arm] 114/72 Pulse Oximetry 97 99 Oxygen Delivery Method Room Air Narrative Exam Narrative: Gen: Alert, oriented, thin 83 y.o. male, NAD HEENT: normocephalic, atraumatic, conjunctiva clear, sclera non-icteric, oral mucosa pink and moist Neck: supple, full ROM, no JVD Resp: Lungs CTA, non-labored breathing CV: RRR, no murmur or rubs Abd: typmanic, soft, non-tender, normoactive BTs, no hepatosplenomegaly Skin: no lesions or rashes, dry and intact Neuro: Alert and oriented X 4 w/no focal deficits Extremities: moves all 4 extremities, is ambulatory, negative David?s sign Psyche: normal mood and affect. Objective Labs Result Diagrams: 05/20/19 18:00 05/20/19 18:00 Labs: Laboratory Results - last 24 hr 05/20/19 05/20/19 05/20/19 18:00 18:00 18:00 WBC 8.5 RBC 4.13 L Hgb 12.9 L Hct 38.8 L MCV 94.0 MCH 31.3 MCHC 33.3 RDW 14.5 Plt Count 394 Neut % (Auto) 57.8 Lymph % (Auto) 22.0 L [place] % (Auto) 8.1 Eos % (Auto) 11.2 H Baso % (Auto) 0.9 Neut # (Auto) 4900 Lymph # (Auto) 1900 [place] # (Auto) 700 Eos # (Auto) 1000 H Baso # (Auto) 100 PT 14.9 H INR 1.3 APTT 29 Sodium 132 L Potassium 4.2 Chloride 99 Carbon Dioxide 29 BUN 17 Creatinine 1.05 Estimated GFR > 60.0 BUN/Creatinine Ratio 16.2 Glucose 85 Lactate Calcium 8.2 L Total Bilirubin 0.4 AST 29 ALT 15 Alkaline Phosphatase 58 Total Creatine Kinase 73 CK-MB (CK-2) TNP CK-MB (CK-2) Rel Index TNP Troponin I < 0.012 NT-Pro-B Natriuret Pep 166 Total Protein 5.4 L Albumin 2.9 L Globulin 2.5 Albumin/Globulin Ratio 1.2 Lipase 68 05/20/19 18:30 WBC RBC Hgb Hct MCV MCH MCHC RDW Plt Count Neut % (Auto) Lymph % (Auto) [place] % (Auto) Eos % (Auto) Baso % (Auto) Neut # (Auto) Lymph # (Auto) [place] # (Auto) Eos # (Auto) Baso # (Auto) PT INR APTT Sodium Potassium Chloride Carbon Dioxide BUN Creatinine Estimated GFR BUN/Creatinine Ratio Glucose Lactate 1.2 Calcium Total Bilirubin AST ALT Alkaline Phosphatase Total Creatine Kinase CK-MB (CK-2) CK-MB (CK-2) Rel Index Troponin I NT-Pro-B Natriuret Pep Total Protein Albumin Globulin Albumin/Globulin Ratio Lipase Assessment & Plan Assessment & Plan narrative: Edgar Yeh will be observed overnight, serial abdominal exams, morning labs and will be seen by general surgery in the morning. Pneumoperitoneum with pneumatosis intestinalis, unknown if acute or chronic, present on admission -Clear liquids tonight -serial abdominal exams -General surgery consult requested and appreciated Nausea and vomiting, acute, present on admission -Normally takes ondansatron 4 mg ODT, have held, and start IV 4 mg q 6 hours prn GERD, chronic -Hold home oral protonix, start IV protonix 40 mg once daily FEN: NS at 75 ml/hour, clears, chemistries in the am Patient is placed into observation as his stay is not likely to exceed 2 midnights. VTE Prophylaxis: Bilateral SCDs Medications reconciled: yes Disposition: likely discharge home Code Status: Full code Quality VTE Deep Vein Thrombosis/Pulmonary Embolism Present on Admission: No
[2019-05-21 03:11] VITALS: BP 120/52; PULSE 63; RESP 16; TEMP 36.3
[2019-05-21 05:25] LABS: Add Manual Diff / Slide Review NO; Basophils Absolute Auto 0 /uL (0-100); Basophils Percent Auto 0.6 % (0-2); Eosinophils Absolute Auto 800 /uL (0-450); Eosinophils Percent Auto 12.1 % (2-4); Hemoglobin 11.8 g/dL (13.5-17.5); Lymphocytes Absolute Auto 1500 /uL (1100-4500); Lymphocytes Percent Auto 21.8 % (25-40); Mean Corpuscular HGB Conc 33.7 % (30-36); Mean Corpuscular Hemoglobin 31.8 PG (26-34); Mean Corpuscular Volume 94.3 fL (80-100); Monocytes Absolute Auto 600 /uL (0-900); Monocytes Percent Auto 8.2 % (3-14); Neutrophils Absolute Auto 4000 /uL (1500-7000); Neutrophils Percent Auto 57.3 % (50-75); Platelet Count 293 X10^3/uL (150-400); Red Blood Cell Count 3.71 X10^6/uL (4.5-5.9); Red Cell Distribution Width 14.3 % (11.6-14.8); White Blood Cell Count 6.9 X10^3/uL (4.5-11.0)
[2019-05-21 05:35] LABS: BUN Creatinine Ratio 13.8 (6-22); Blood Urea Nitrogen 13 mg/dL (9-20); Calcium 7.6 mg/dL (8.4-10.2); Carbon Dioxide 25 mmol/L (22-32); Chloride 105 mmol/L (98-107); Estimated Glomerular Filt Rate > 60.0 mL/min (>60); Glucose 71 mg/dL (80-110); HEMOLYSIS < 15 (0-50); Potassium 3.9 mmol/L (3.4-5.1); Sodium 134 mmol/L (137-145)
[2019-05-21] MEDS: SODIUM CHLORIDE 0.9% 1,000 ML 75 ML IV (06:15)
--- NOTE | 2019-05-21 06:17 | DI.RAD.S_ITS ---
PROCEDURE: XR ABDOMEN 3V INDICATIONS: free air TECHNIQUE: One view chest and two views of the abdomen were acquired. COMPARISON: [facility], CT, CT CHEST ABD PEL W CON, 05/20/2019, 19:10. FINDINGS: Surgical changes and devices: Brachytherapy seeds are noted in the region of the prostate gland. Chest: Bibasilar atelectasis is seen. No pneumothorax. Heart size is normal. No pleural effusions. Free air is seen under the diaphragm multiple prominent on the right side. Abdomen: There is no evidence of bowel obstruction. There is suggestion of pneumatosis predominantly in right upper quadrant abdomen which was better evaluated on CT study. No suspicious calcifications. Visualized solid organ contours appear normal. Bones: No suspicious bony lesions. IMPRESSION: Persistent pneumoperitoneum and suggestion of pneumatosis better evaluated on previous CT of abdomen and pelvis study. Dictated by: Earle Thompson M.D. on 05/21/2019 at 8:45 Approved by: Earle Thompson M.D. on 05/21/2019 at 8:46
--- NOTE | 2019-05-21 06:19 | DI.RAD.S_ITS ---
PROCEDURE: XR CHEST 1V INDICATIONS: free air TECHNIQUE: One view of the chest was acquired. COMPARISON: [facility], CT, CT CHEST ABD PEL W CON, 05/20/2019, 19:10. [facility], CR, XR CHEST 1V, 05/20/2019, 18:05. FINDINGS: Surgical changes and devices: None. Lungs and pleura: Bibasilar atelectasis is seen. No pleural effusions or pneumothorax. Mediastinum: Mediastinal contours appear normal. Heart size is normal. Bones and chest wall: No suspicious bony lesions. Overlying soft tissues appear unremarkable. Free air under the diaphragm is again seen. Air within bowel wall suggestive of pneumatosis in right upper quadrant abdomen is also seen better evaluated on previous CT study. IMPRESSION: Bibasilar atelectasis/small infiltrate. Free air under the diaphragm and suggestion of pneumatosis. Dictated by: Earle Thompson M.D. on 05/21/2019 at 8:37 Approved by: Earle Thompson M.D. on 05/21/2019 at 8:44
--- NOTE | 2019-05-21 07:24 | P.CONS_ITS ---
History of Present Illness Consult details Chief complaint: Abnormal PET scan, told to go to ER right away Narrative: This is an 83-year-old man with history of prostate CA, bladder CA, peptic ulcer disease, chronic GI dysfunction (currently under evaluation by Dr. Garza at [facility], with referral pending to [facility]) of unclear etiology, chronic nausea, chronic weight loss (45 lb in 2 years, current BMI of 20), chronic bloating and flatulence, intermittent constipation and diarrhea. He was sent for a PET scan by his PCP for cancer surveillance yesterday and was found to have free air and pneumotosis of his bowel on the scan. He was called by the radiologist, and directed to come into the ER. In the ER he had a CT scan with IV contrast, as well as a full set of labs. CT scan with IV contrast showed free air as well as pneumatosis of the bowel, similar to that seen on the PET scan. His labs were essentially normal other than some mild anemia, and eosinophilia. He had no other leukocytosis, and his lactate was normal. In the ER, he denied any complaints other than those listed above, intermittent bloating and flatulence, chronic nausea, and chronic weight loss. His abdominal exam was reportedly benign, and he was admitted to the hospitalist for observation overnight. Upon seeing me this morning, the patient gives a similar history to what he gave in the ER. On further questioning about his GI workup at [facility], he tells me that he has recently had a capsule endoscopy in January which showed, ?small ulcers? throughout the bowel, and an upper and lower endoscopy which were appar ently unrevealing of any particular cause of his GI symptoms. His GI doctor at [facility] had referred him to [facility], and he has had a video conference with a nurse practitioner there. They apparently were planning for a double balloon enteroscopy, but this has been delayed due to the Novel mo virus outbreak. He says that his current diet consists of Activia in the morning, and about 6 b ottles of Ensure throughout the day. He says that he eats no other foods. He tells me that he currently takes esomeprazole 20 mg daily for his history of peptic ulcers. ROS: Denies current symptoms of nausea, denies any abdominal pain, reports constipation, and severe straining to have a bowel movement, reports copious flatulence and bloating. Denies cough, cold, fever, or rhinorrhea symptoms. Thirteen system review is otherwise negative other than as mentioned below and in HPI. PE: GENERAL: Well groomed and cooperative. Appears younger than stated age. Answers questions promptly and appropriately. Vital signs noted. HENT: Normocephalic, atraumatic. Hearing intact. Oral mucosa is pink and moist. EYES: Conjunctiva pink, sclera white, no periorbital swelling. CARDIOVASCULAR: Regular rate. No pedal edema. RESPIRATORY: Non-tachypneic, breathing comfortably on room air. GASTROINTESTINAL: Abdomen soft and completely nontender, totally benign exam GENITALURINARY: No flank tenderness. MUSCULOSKELETAL: Equal tone and mass bilaterally. SKIN: Warm, dry, soft, appropriate color for ethnicity. No other lesions, rashes, or wounds. NEURO: Alert and Oriented X 3. No gross sensory deficits, or cognitive issues. PSYCH: Appropriate affect and mood. Meds Home Medications and Allergies Home Medications Medication Instructions Recorded Confirmed Type milk thistle 250 mg PO DAILY 08/29/17 05/20/19 History multivit with min-folic tab PO tab 08/29/17 10/31/17 History acid-lutein 400 mcg-250 mcg chewable tablet omega-3 fatty acids 1,000 mg 1,000 mg PO DAILY 08/29/17 05/20/19 History capsule ondansetron 4 mg disintegrating 4 mg PO QID PRN 08/29/17 05/20/19 History tablet timolol 0.25 % eye drops 1 drp EYE-BOTH BID ml 08/29/17 05/20/19 History omeprazole 40 mg PO DAILY #90 cap 09/26/17 05/20/19 Rx cyanocobalamin (vitamin B-12) 2,500 mcg PO DAILY 05/20/19 05/20/19 History latanoprost [Xalatan] 1 drp OPHTHALMIC (EYE) BEDTIME 05/20/19 05/20/19 History melatonin 1 mg PO BEDTIME PRN 05/20/19 05/20/19 History simethicone [Gas-X Extra Strength] 125 mg PO BID-QID PRN 05/20/19 05/20/19 History Allergies Allergy/AdvReac Type Severity Reaction Status Date / Time No Known Drug Allergies Allergy Unverified 08/29/17 11:22 Exam Vital Signs (past 8 hours): - 05/20/19 23:40 05/21/19 03:11 Temperature 98.3 F 97.3 F L Pulse Rate 65 63 Respiratory Rate 16 16 Blood Pressure 121/60 120/52 L Oxygen Delivery Method Room Air Objective Imaging CT scan - abdomen: Radiologist's impression: LUCIL[facility] [place] [id number] CT Scan Report Signed Patient: Edgra Yeh JMR#: [id number] : 7Acct:[id number] Age/Sex: 83 / MDate of Service: 05/20/19 Loc: ED Accession Number: [id number] Procedure: CT chest abd pel w con Ordering Provider: Juan Miguel Abel D.O. PROCEDURE: CT CHEST ABD PEL W CON INDICATIONS: free air on CXR, free air noted on PET TECHNIQUE: After the administration of oral and intravenous contrast, 5 mm thick sections acquired from the lung apices to the symphysis. 5 mm coronal and sagittal reformats were performed, with additional 7 mm coronal MIP reformats through the lungs. For radiation dose reduction, the following was used: automated exposure control, adjustment of mA and/or kV according to patient size. COMPARISON: [facility], CT, CT ABDOMEN WITHOUT CONTRAST, 06/19/2018, 8:58. [place], [place], [place] PET CT FUSION SKULL 2 THIGH, 05/20/2019, 13:33. FINDINGS: Image quality: Excellent. CHEST: Lungs and pleura: No acute airspace opacities. No pleural effusions or pneumothorax. Central and peripheral airways appear patent and normal in caliber. Mediastinum: Heart size is normal. No pericardial effusion. No mediastinal or hilar adenopathy by size criteria. Thoracic aorta and central pulmonary arteries are normal in size. Esophagus is distended with fluid in the distal portion. No hiatal hernia. Chest wall: No axillary or supraclavicular adenopathy by size criteria. Thyro id gland is unremarkable. ABDOMEN: Solid organs: Liver is normal in size and enhancement. Gallbladder is unremarkable. Biliary system is non dilated. Pancreas enhances normally. Spleen is normal in size and enhancement. No adrenal nodules. Kidneys demonstrate normal size and enhancement, without hydronephrosis. Peritoneum and bowel: There is mild to moderate free air within the nondependent abdomen and below the hemidiaphragms particularly on the right. Air is present within the bowel wall along the anterior and mid abdomen. This appears to be predominantly within the small bowel. However, extensive diverticula are present within the colon and small areas of air within the wall versus diverticula cannot be excluded particularly were bowel loops are overlapping. The bowel appears to demonstrate normal enhancement. Minimal dependent pelvic fluid. Nodes and vessels: Multiple enlarged/borderline enlarged mesenteric lymph nodes are present most numerous within the region of affected bowel. Aorta and inferior vena cava are normal in size. Miscellaneous: No ventral hernias. PELVIS: Genitourinary: Bladder wall thickness is normal. Miscellaneous: No inguinal hernias or adenopathy. Bones: No suspicious bony lesions. No vertebral body compression fractures. IMPRESSION: 1. Free air within the abdomen and pelvis consistent with pneumoperitoneum. In addition, air within the bowel wall predominantly be small bowel consistent with pneumatosis is identified. Overall appearance is unchanged compared to PET scan of 05/20/19. It is noted that the bowel continues to demonstrate normal enhancement. Overall appearance is suggestive of infection/inflammation particularly given surrounding reactive lymph nodes. 2. Significant colonic diverticulosis. 3. Minimal dependent pelvic fluid. Dictated by: Alyse Cruz M.D. on 05/20/2019 at 19:40 Approved by: Alyse Cruz M.D. on 05/20/2019 at 19:49 Labs Result Diagrams: 05/21/19 05:05 05/21/19 05:05 Labs: Laboratory Results - last 24 hr 05/20/19 05/20/19 05/20/19 18:00 18:00 18:00 WBC 8.5 RBC 4.13 L Hgb 12.9 L Hct 38.8 L MCV 94.0 MCH 31.3 MCHC 33.3 RDW 14.5 Plt Count 394 Neut % (Auto) 57.8 Lymph % (Auto) 22.0 L [place] % (Auto) 8.1 Eos % (Auto) 11.2 H Baso % (Auto) 0.9 Neut # (Auto) 4900 Lymph # (Auto) 1900 [place] # (Auto) 700 Eos # (Auto) 1000 H Baso # (Auto) 100 PT 14.9 H INR 1.3 APTT 29 Sodium 132 L Potassium 4.2 Chloride 99 Carbon Dioxide 29 BUN 17 Creatinine 1.05 Estimated GFR > 60.0 BUN/Creatinine Ratio 16.2 Glucose 85 Lactate Calcium 8.2 L Total Bilirubin 0.4 AST 29 ALT 15 Alkaline Phosphatase 58 Total Creatine Kinase 73 CK-MB (CK-2) TNP CK-MB (CK-2) Rel Index TNP Troponin I < 0.012 NT-Pro-B Natriuret Pep 166 Total Protein 5.4 L Albumin 2.9 L Globulin 2.5 Albumin/Globulin Ratio 1.2 Lipase 68 05/20/19 05/21/19 05/21/19 18:30 05:05 05:05 WBC 6.9 RBC 3.71 L Hgb 11.8 L Hct 35.0 L MCV 94.3 MCH 31.8 MCHC 33.7 RDW 14.3 Plt Count 293 Neut % (Auto) 57.3 Lymph % (Auto) 21.8 L [place] % (Auto) 8.2 Eos % (Auto) 12.1 H Baso % (Auto) 0.6 Neut # (Auto) 4000 Lymph # (Auto) 1500 [place] # (Auto) 600 Eos # (Auto) 800 H Baso # (Auto) 0 PT INR APTT Sodium 134 L Potassium 3.9 Chloride 105 Carbon Dioxide 25 BUN 13 Creatinine 0.94 Estimated GFR > 60.0 BUN/Creatinine Ratio 13.8 Glucose 71 L Lactate 1.2 Calcium 7.6 L Total Bilirubin AST ALT Alkaline Phosphatase Total Creatine Kinase CK-MB (CK-2) CK-MB (CK-2) Rel Index Troponin I NT-Pro-B Natriuret Pep Total Protein Albumin Globulin Albumin/Globulin Ratio Lipase Assessment & Plan Assessment and plan (1) Pneumatosis intestinalis: Current visit: Yes Status: Acute (2) Pneumoperitoneum: Current visit: Yes Status: Acute (3) Gastroesophageal reflux disease: Current visit: No Status: Acute (4) Diverticulosis large intestine w/o perforation or abscess w/o bleeding: Current visit: No Status: Acute (5) COPD (chronic obstructive pulmonary disease): Current visit: No Status: Acute (6) Bladder cancer: Current visit: No Status: Acute (7) History of peptic ulcer disease: Current visit: Yes Status: Acute (8) Chronic constipation: Current visit: Yes Status: Acute (9) Chronic nausea: Current visit: Yes Status: Acute (10) Severe protein-calorie malnutrition: Current visit: Yes Status: Acute (11) Unexplained weight loss: Current visit: Yes Status: Acute (12) Anemia: Current visit: Yes Status: Acute (13) Eosinophilia: Current visit: Yes Status: Acute Assessment & Plan narrative: This is an 83-year-old man with a complex medical history, who presents with an incidental finding of pneumatosis intestinalis, and free air on a surveillance CT scan done yesterday. His exam and labs are entirely benign with the exception of mild anemia, and a slight eosinophilia on his CBC. It sounds like he has had a pretty extensive and recent workup by Dr. Garza of Gastroenterology at [facility], and has a pending referral to [facility], and a pending double balloon enteroscopy to be done there. 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 I have never seen this in real life, but it can present with more severe GI symptoms or, with milder, chronic symptoms as in the case of this patient. PCI is said to be secondary to an underlying cause which causes weakening or process the of the bowel wall, with the formation of small cysts, which can acutely or chronically rupture, resulting in pneumatosis of the bowel in free air, with very minimal acute symptoms. It is often treated with hyperbaric oxygen, or nasal cannula oxygen, and at times is treated with antibiotics if indicated due to translocation of bowel lora into the abdomen. Here is a general article on PCI: https://www.ncbi.nlm.nih.gov/pmc/articles/SCV4052745/pdf/WJG-17-4932.pdf 15 minutes were spent face to face with the patient. More than 50% of the time was spent in counseling and co-ordination of care regarding discussion of his medical and surgical history, his current symptoms, and possible etiology of the free air found on his CT scan, as well as the intestinal pneumatosis. An additional 50 minutes were spent reviewing literature related to PCI, and reviewing his hospital notes, labs, and imaging studies. There is no urgent surgical indication as his exam and labs are entirely benign. I would discuss with his locomotive inspector whether not they want to put him on Flagyl, or send him for oxygen therapy, or simply have them follow up with him as an outpatient. Recommendations: I ordered a KUB and chest x-ray just to evaluate whether the free air is increasing significantly from yesterday, these are pending I strongly recommend discussing his case with his locomotive inspector at [facility] and letting them decide if they want to follow him up as an outpatient, or have him transferred to [facility] for any further inpatient evaluation and management. Go ahead and start him on nasal cannula oxygen, and consider IV or p.o. Flagyl Okay to advance his diet to his regular diet which is 6 cans of Ensure per day to be taken orally Okay to give his home meds Time Spent With Patient Time with patient: 15-24 minutes
[2019-05-21 07:44] LABS: Magnesium 2.1 mg/dL (1.6-2.3)
[2019-05-21 08:00] VITALS: BP 106/70; PULSE 61; RESP 16; TEMP 36.5; O2SAT 99
[2019-05-21] MEDS: PANTOPRAZOLE 40 MG VIAL IV (08:32)
[2019-05-21] MEDS: TIMOLOL 0.25% OPHTH 1 DROPS EYE-BOTH (10:31)
[2019-05-21 11:45] VITALS: BMI 19.8
--- NOTE | 2019-05-21 12:09 | CM.IDA ---
Initial DCP Assessment Note: Pt is an 83 yo male, resident of [place]. Pt presents after PET scan done .03.09 that showed free air PCP: Noah Gaviria Payer: MIKEL/Long Met w/pt this morning, explained SW role. Pt is in good spirits, states he is indp and active at baseline, he has had numerous GI work ups over the last 2 years d/t his weight loss and other distressing symptoms. Pt states no needs from this CONSTRUCTION MANAGER today and if he is DC home he will walk on to the [facility] and spouse will pick him up in [place] to transport home. This CONSTRUCTION MANAGER will remain available today in case DC needs or concerns arise. SANTIAGO Pablo Discharge Planning/Care Management CM Discharge Assessment Start: 05/21/19 12:06 Freq: Status: Active Protocol: Document 05/21/19 12:06 MEGGAN (Rec: 05/21/19 12:09 MEGGAN [id number]) Discharge Planning Assessment Assigned Trim Mechanic SANTIAGO Cline DPOA/Assigned Designee Name Komal Yeh, spouse Contact Information [phone] Advance Directives? Yes Advance Directives on File No History Provided By Patient Prior Living Arrangements House Household Members spouse Type of transporation used prior to Drives own vehicle admit Independent with ADL's Yes Is patient alert and oriented? Yes Barriers to Discharge No Discharge Plan Home Transportation Arrangement pov, [facility] Referrals Initiated None needed Whiteboard Updated in Patient Room with Yes name and ext. # of Trim Mechanic Review Status In Process
--- NOTE | 2019-05-21 13:05 | P.DS_ITS ---
History of Present Illness History of Present Illness Date Patient Seen: 05/20/19 Chief complaint: Abnormal PET scan, told to go to ER right away Narrative: Written by Leyla LAWRENCE: Edgar Yeh is an 83-year-old resident on Saturday who was having a PET scan done today at . [place] when he was contacted by the radiology department to return to the hospital for further evaluation due to abnormal finding seen on the PET scan. The PET scan indicated that the patient had a pneumoperitoneum with gas seen above the diaphragm as well and a finding of small intestine pneumatosis intestinalis and small volume of pneumoperitoneum. He was directed to report back to the emergency department indicates that he may need to have surgical intervention. The patient has a history of prostate cancer diagnosed and treated with brachytherapy 18 years ago and bladder cancer diagnosed in 2018 and currently undergoing BCG treatment. The he also states he has dumping syndrome. Patient was ordered for a PET scan due to a weight loss extending back 2 years of approximately 45 lbs. He states that he has been quite fatigued and has had changes in his stool from a normal of creamy white stool the same color as Ensure vanilla formula? of which he is mostly been subsisting on. He states he is on a 2200 calorie per day diet. He states that he has developed stool incontinence and until approximately 1 week ago it changed to a dark brown color. At that point he stopped taking his daily aspirin with due to a concern of bleeding. He believes that he had a stool guaiac performed at his PCPs office. He has had intermittent nausea and vomiting, no appetite and states has gas both in the form of burping as well as flatulence. He states that the flatulence is loud but not odorous. During his most recent visit to Dr. Gaviria, he believes they did a stool guaiac and stated that at that time his stool was as hard as granite. He states that with his progressive weight loss, he is becoming more short of breath. He denies any abdominal pain but does endorse having muscle weakness. He used to walk 10,000 steps a day and is no longer able to do that. He stated that his vomiting started 3 weeks ago and then stopped about a week ago. Patient sees Dr. Gaviria in Saturday who manages his general medical issues, he is seen Dr. Garza, GI specialist at [facility] who recently referred him to [facility]. In 2018, he had an upper endoscopy done by js Garza and apparently in 2018 he had a large duodenal ulcer. He just recently had a telemedicine appointment with Luz Bullock NP and was scheduled for an appointment with Dr. Knight sometime next week, but was postponed. Discharge Providers Provider Date of admission: 05/20/19 21:05 Discharge Date: 05/21/19 Consults: 05/20/19 21:15 Consult to Physician Routine Comment: Consulting Provider: Maribell Patiño Reason for consultation: pneumoperiteneum seen on PET scan and CT, hx bladder CA weight loss of 40# Has provider been notified: Yes 05/20/19 21:55 Consult to Dietitian, Adult Routine Comment: Reason For Exam: unable to keep weight up Discharge provider: Tiffanie Horner DO Summary Hospital Course Discharge Diagnosis: 1. Pneumoperitoneum with pneumatosis intestinalis, likely chronic, present on admission. Stable. 2. Nausea and vomiting, chronic, present on admission. Stable. 3. GERD, chronic, present on admission. Stable. Hospital Course: Edgar Yeh is an 83-year-old male with a past medical history significant for prostate CA, bladder CA, peptic ulcer disease, chronic GI dysfunction (cur rently under evaluation by Dr. Garza at [facility], with referral pending to [facility]) of unclear etiology, chronic nausea, chronic weight loss (45 lb in 2 years, current BMI of 20), chronic bloating and flatulence, intermittent constipation and diarrhea who was sent for a PET scan by his PCP for cancer surveillance yesterday and was found to have free air and pneumotosis of his bowel on the scan and directed to come to the ED. 1. Pneumoperitoneum with pneumatosis intestinalis, likely chronic, present on admission. Stable. -Patient presented to ED after PET scan demonstrated pneumoperitoneum. -CT abdomen and pelvis with contrast demonstrated free air within the abdomen and pelvis consistent with pneumoperitoneum. In addition, air within the bowel wall predominantly be small bowel consistent with pneumatosis is identified. Overall appearance is unchanged compared to PET scan of 05/20/19. It is noted that the bowel continues to demonstrate normal enhancement. Overall appearance is sug gestive of infection/inflammation particularly given surrounding reactive lymph nodes. Significant colonic diverticulosis. Minimal dependent pelvic fluid. -Repeat abdominal series demonstrated stable appearance of pneumoperitoneum. -Continued supplemental oxygen until discharge. -Consulted general surgery, Dr. Casillas, who recommended supplemental oxygen, discussion and follow-up with patient's GI specialists. -Discussed case with patient's GI specialists, Dr. Garza at [facility] and Luz LAWRENCE at [facility] who recommended supplemental oxygen until discharge, course of antibiotics for [address] enterography in 2 weeks. Of note, the patient was noted to have pneumoperitoneum on CT performed in April 2019 per Luz LAWRENCE at . Patient was discharged on ciprofloxacin 500 mg twice daily and metronidazole 500 mg 3 times daily for 14 days. Patient has scheduled follow-up with both GI specialist in 2 weeks. 2. Nausea and vomiting, chronic, present on admission. Stable. -Continued ondansatron 4 mg every 6 hours as needed for nausea. 3. GERD, chronic, present on admission. Stable. -Continued Protonix 40 mg daily. Exam Vital Signs (past 8 hours): - 05/21/19 08:00 Temperature 97.7 F Pulse Rate 61 Respiratory Rate 16 Blood Pressure 106/70 Pulse Oximetry 99 Oxygen Delivery Method Room Air Oxygen Flow Rate 2 Narrative Exam Narrative: General: Elderly frail and cachectic appearing gentleman sitting in bed and in no acute distress, appropriately interactive HEENT: Normocephalic, atraumatic. External ears without defect. Pupils equal, round, and reactive to light. Anicteric sclerae, moist conjunctivae, and no lid lag. Oropharynx free of erythema and cobble stoning with moist mucosa. Neck: Supple with full range of motion. No lymphadenopathy or thyromegaly. Cardiovascular: Regular rate and rhythm without murmurs, rubs, or gallops appreciated. Pulmonary: Clear to auscultation bilaterally without crackles, wheezes, or rhonchi. Normal respiratory effort with no use of accessory muscles. Abdomen: Soft, bowel sounds present, mildly distended, nontender. No hepatosplenomegaly or masses appreciated. Extremities: No clubbing, cyanosis, or edema. Skin: Normal temperature, turgor, and texture; no rash, ulcers, or subcutaneous nodules appreciated. Neurological: Cranial nerves grossly intact. Psychiatric: Normal mood and affect. Alert and oriented to person, place, and time. Objective Labs Result Diagrams: 05/21/19 05:05 05/21/19 05:05 Labs: Laboratory Results - last 24 hr 05/20/19 05/20/19 05/20/19 18:00 18:00 18:00 WBC 8.5 RBC 4.13 L Hgb 12.9 L Hct 38.8 L MCV 94.0 MCH 31.3 MCHC 33.3 RDW 14.5 Plt Count 394 Neut % (Auto) 57.8 Lymph % (Auto) 22.0 L [place] % (Auto) 8.1 Eos % (Auto) 11.2 H Baso % (Auto) 0.9 Neut # (Auto) 4900 Lymph # (Auto) 1900 [place] # (Auto) 700 Eos # (Auto) 1000 H Baso # (Auto) 100 PT 14.9 H INR 1.3 APTT 29 Sodium 132 L Potassium 4.2 Chloride 99 Carbon Dioxide 29 BUN 17 Creatinine 1.05 Estimated GFR > 60.0 BUN/Creatinine Ratio 16.2 Glucose 85 Lactate Calcium 8.2 L Magnesium Total Bilirubin 0.4 AST 29 ALT 15 Alkaline Phosphatase 58 Total Creatine Kinase 73 CK-MB (CK-2) TNP CK-MB (CK-2) Rel Index TNP Troponin I < 0.012 NT-Pro-B Natriuret Pep 166 Total Protein 5.4 L Albumin 2.9 L Globulin 2.5 Albumin/Globulin Ratio 1.2 Lipase 68 05/20/19 05/21/19 05/21/19 18:30 05:05 05:05 WBC 6.9 RBC 3.71 L Hgb 11.8 L Hct 35.0 L MCV 94.3 MCH 31.8 MCHC 33.7 RDW 14.3 Plt Count 293 Neut % (Auto) 57.3 Lymph % (Auto) 21.8 L [place] % (Auto) 8.2 Eos % (Auto) 12.1 H Baso % (Auto) 0.6 Neut # (Auto) 4000 Lymph # (Auto) 1500 [place] # (Auto) 600 Eos # (Auto) 800 H Baso # (Auto) 0 PT INR APTT Sodium 134 L Potassium 3.9 Chloride 105 Carbon Dioxide 25 BUN 13 Creatinine 0.94 Estimated GFR > 60.0 BUN/Creatinine Ratio 13.8 Glucose 71 L Lactate 1.2 Calcium 7.6 L Magnesium Total Bilirubin AST ALT Alkaline Phosphatase Total Creatine Kinase CK-MB (CK-2) CK-MB (CK-2) Rel Index Troponin I NT-Pro-B Natriuret Pep Total Protein Albumin Globulin Albumin/Globulin Ratio Lipase 05/21/19 05:05 WBC RBC Hgb Hct MCV MCH MCHC RDW Plt Count Neut % (Auto) Lymph % (Auto) [place] % (Auto) Eos % (Auto) Baso % (Auto) Neut # (Auto) Lymph # (Auto) [place] # (Auto) Eos # (Auto) Baso # (Auto) PT INR APTT Sodium Potassium Chloride Carbon Dioxide BUN Creatinine Estimated GFR BUN/Creatinine Ratio Glucose Lactate Calcium Magnesium 2.1 Total Bilirubin AST ALT Alkaline Phosphatase Total Creatine Kinase CK-MB (CK-2) CK-MB (CK-2) Rel Index Troponin I NT-Pro-B Natriuret Pep Total Protein Albumin Globulin Albumin/Globulin Ratio Lipase Discharge Plan Discharge Plan Patient Disposition: Home Discharge comment: emergency department.You're being discharged home. You have free air in your abdomen that was seen in April and again on your PET scan and CT scan yesterday. You have been prescribed ciprofloxacin 500 mg twice daily and metronidazole 500 mg 3 times daily to prevent infection of your abdomen. Your slat basket maker helper's Dr. Garza and Luz LAWRENCE would like a repeat CT enterography in 2 weeks and Luz is arranging for this to be done at [facility]. Please call and make an appointment with Dr. Lemus in 2 weeks. Luz LAWRENCE should be calling you to arrange an appointment via telephone. If you have developed severe abdominal pain, fever, or worsening symptoms in next 1-[address] Garza's office or go to the ED Discharge orders & Medications Prescriptions: New metronidazole 500 mg Tablet 500 mg PO TID Qty: 42 RF: 0 ciprofloxacin HCl [Cipro] 500 mg Tablet 500 mg PO BID Qty: 28 RF: 0 Continued omega-3 fatty acids [Fish Oil Concentrate] 1,000 mg capsule 1,000 mg PO DAILY RF: 0 timolol 0.25 % drops 1 drp EYE-BOTH BID RF: 0 ondansetron 4 mg tablet,disintegrating 4 mg PO QID PRN (Reason: Nausea) RF: 0 hv-hmf-gaciy acid-lutein [Centrum Silver] 400-250 mcg tablet,chewable PO RF: 0 milk thistle 250 mg PO DAILY RF: 0 simethicone [Gas-X Extra Strength] 125 mg Capsule 125 mg PO BID-QID PRN (Reason: Gastric Reflux) RF: 0 melatonin 1 mg Tablet 1 mg PO BEDTIME PRN (Reason: Sleep) RF: 0 cyanocobalamin (vitamin B-12) 2,500 mcg Tablet 2,500 mcg PO DAILY RF: 0 latanoprost [Xalatan] 0.005 % Drops 1 drp OPHTHALMIC (EYE) BEDTIME RF: 0 omeprazole 40 mg capsule,delayed release(DR/EC) 40 mg PO DAILY Qty: 90 RF: 1 Follow up/Referrals: Edgar Garza MD [Non-Staff] - 2 Weeks Diet/Activity/Treatments Diet comment: Continue Ensure shakes 6 times a day Activity: Activity as tolerated Visit Report/Discharge Packet Instructions: Ciprofloxacin (By mouth), Metronidazole (By mouth) Discharge Data Attending Provider: Ivy Chairez Admit Date/Time: 05/20/19 21:05 Discharges patient from system. Discharge Date/Time: 05/21/19 13:40 Quality VTE Deep Vein Thrombosis/Pulmonary Embolism Present on Admission: No
--- NOTE | 2019-05-21 13:56 | PC.NURSE ---
Discharge Pt denies pain. D/c instructions provided to pt. Aware to f/u with GI MD in 2 weeks and to contact them with any additional questions or concerns. Rx faxed to [facility]. Pt left with paper Rx as well. Pt left with his meds from home. Had hearing aids as well. left in w/c with LIGHT RAIL SIGNAL TECHNICIAN escort to ER entrance where [employer] taxi to get to [facility]. Pt is a walk on for the [facility] so he did not need a priority boarding.
== END 2019-05-21 13:40 | disposition home or self-care (01) ==
LOC: ED 20:58 → AC 21:06
PROVIDERS: Surgery; Admitting Provider Nurse Practitioner Family; Emergency Provider Emergency Medicine; Referring Provider Emergency Medicine; Visit Provider Nurse Practitioner Family
DX: K63.89 Other specified diseases of intestine (principal); R93.5 Abnormal findings on diagnostic imaging of other abdominal regions, including retroperitoneum; K66.8 Other specified disorders of peritoneum; C67.9 Malignant neoplasm of bladder, unspecified; K21.9 Gastro-esophageal reflux disease without esophagitis; J44.9 Chronic obstructive pulmonary disease, unspecified; Z87.11 Personal history of peptic ulcer disease; K59.09 Other constipation; R11.0 Nausea; E43 Unspecified severe protein-calorie malnutrition; R63.4 Abnormal weight loss; K57.30 Diverticulosis of large intestine without perforation or abscess without bleeding
CPT/HCPCS: 36415; 71045; 71260; 74021; 74177; 80048; 80053; 81003; 82550; 83605; 83690; 83735; 83880; 84484; 85025; 85610; 85730; 93005; 96361; 96374; 99224; 99285; G0378; C9113; Q9967